=== PATIENT | male | born 1940 | race Caucasian/White ===

== ENCOUNTER 2020-11-08 10:07 | Emergency (ER) | payer MEDICARE, MEDICAID, SELFPAY ==
[2020-11-08 10:21] VITALS: BP 141/68; PULSE 103; RESP 18; TEMP 36.6; O2SAT 99
--- NOTE | 2020-11-08 10:32 | ED.GENADULT ---
HPI - General Adult General Chief complaint: Eye Problems Stated complaint: Irritated left Eye Time Seen by Provider: 11/08/20 10:32 Source: patient, RN notes reviewed and old records reviewed Mode of arrival: ambulatory Limitations: no limitations History of Present Illness HPI narrative: 80 year old male who presents to [facility] care with complaints of foreign body sensation to his left eye since yesterday afternoon. Patient states that he was using a blower to clean off his mower and even though he was wearing safety glasses he thinks he has something in his left eye. Patient states that when he awoke this morning his eye was matted shut with some yellowish looking drainage, his eye is red and irritated with his vision blurry in his left eye. Patient denies any sharp pain to his eye reports feels like something is in his eye.He reports that he got into the shower and using sprayer tried to wash his eye out this morning which didn't help his symptoms. complaint: left eye foreign body Onset (ago): day(s) (since yesterday afternoon) Location: eyes (left) Radiation: non-radiation Severity: moderate Severity scale (1-10): 6 Quality: aching and dull Pain Consistency: constant Relieving factors: none Associated symptoms: denies other symptoms Treatments prior to arrival: other (tried to wash out his eye) Related Data Home Medications Medication Instructions Recorded Confirmed diltiazem HCl 120 mg PO DAILY 11/08/20 11/08/20 simvastatin 20 mg PO HS 11/08/20 11/08/20 warfarin 5 mg PO DAILY 11/08/20 11/08/20 Allergies Allergy/AdvReac Type Severity Reaction Status Date / Time No Known Allergies Allergy Verified 11/08/20 10:33 Review of Systems Review of Systems: Narrative: CONSTITUTIONAL: Denies fever, chills, or sweats. EYES: Denies acute visual changes states that left eye is blurry though,positive for left eye redness with yellowish drainage, no sharp pain to his left eye. ENT: Denies rhinorrhea, congestion, sore throat, or otalgia. CARDIOVASCULAR: Denies chest pain, palpitations, or edema. RESPIRATORY: Denies cough or dyspnea. GASTROINTESTINAL: Denies abdominal pain, nausea, vomiting, or diarrhea. GENITOURINARY: Denies dysuria or hematuria. SKIN: Denies rash or itching. MUSCULOSKELETAL: chronic cervical back pain, some pain to leg joints, or myalgia. NEUROLOGIC: Denies headache, numbness, or weakness. PSYCHIATRIC: Denies anxiety or depression. All systems reviewed & are unremarkable except as noted in HPI and below PMFSH Past Medical History Medical History (Updated 11/11/20 @ 15:19 by Chel Fairchild NP) Arthritis Elevated cholesterol Fracture of right lower extremity History of Coumadin therapy Hypertension Irregular heart beat Right club foot repaired with pinning Surgical History Surgical History (Updated 11/11/20 @ 15:10 by Chel Fairchild NP) H/O cervical spine surgery X2 History of appendectomy Family History Family History (Updated 11/11/20 @ 15:11 by Chel Fairchild NP) Other No significant family history Social History Social History (Updated 11/11/20 @ 15:10 by Chel Fairchild NP) Smoking packs per day: 0.5 Smoking cigarettes per day: 10.0 Years smoked: 30 Smoking pack-years: 15.00 Smoking status: Smoker, status unknown Alcohol intake: former Alcohol use details: none for 40 yers Substance use: never Living arrangements: with roommate(s) Gender identity (if verbalized by the patient): Male Comments At time of signature, agree with nursing past medical, surgical, social and family history. There is no relevant family history pertinent to the presenting complaint Exam Narrative: Exam Narrative: GENERAL: Well-appearing, well-nourished, and in no acute distress. HEAD: Normocephalic, atraumatic. EYES: PERRLA and EOMI.sclera redness to left eye with some light yellow drainage, foreign body irritation reported, previous removal of piece of metal from l
== END 2020-11-08 11:14 | disposition home or self-care (01) ==
PROVIDERS: Emergency Provider Registered Nurse
DX: T15.12XA Foreign body in conjunctival sac, left eye, initial encounter (principal); X58.XXXA Exposure to other specified factors, initial encounter; M19.90 Unspecified osteoarthritis, unspecified site; I10 Essential (primary) hypertension; E78.00 Pure hypercholesterolemia, unspecified
CPT/HCPCS: 65205; 99203; A9270; G0463